=== PATIENT | female | born 1960 | race Caucasian/White ===

== ENCOUNTER 2016-06-09 20:09 | Emergency (ER) | payer OTHER ==
--- NOTE | 2016-06-09 23:05 | DIAGNOSTIC IMAGING REPORT ---
PROCEDURE: XR CHEST 1 VIEW INDICATION: SHORTNESS OF BREATH TECHNIQUE: Portable AP view (2145 hours). COMPARISON: None. FINDINGS: Lungs are clear. Heart and mediastinum are normal. Thorax is normal. IMPRESSION: 1. Negative chest.
--- NOTE | 2016-06-09 23:06 | ED NURSING NOTES ---
Clinical Report - Nurses [facility] [address] [place] [address] 06/09/2016 20:10 Patient: ISMAEL BARGER TRIAGE Triage time 20:34. Acuity: LEVEL 3. Chief Complaint: (Confusion and high blood pressure). --20:43 Marcel Booth R.N. 20:34 06/09/16. BP: 206/104. HR: 71. RR: 20. O2 saturation: 99%. Temp: 98.1 F. Pain level now 0/10. --20:43 Marcel Booth R.N. Weight: 77.1 kg stated. Height/Length: 62 inches Per Patient. BMI: 31.1. --20:41 Marcel Booth R.N. Medications Imitrex Oral. --20:36 Marcel Booth R.N. Lisinopril Oral (Tablet 20 mg). --20:37 Marcel Booth R.N. Propranolol HCl ER Oral 80mg, 2 cap daily. --20:37 Marcel Booth R.N. Medication/allergy information source: the patient. --20:43 Marcel Booth R.N. Allergies No Known Drug Allergy. --20:40 Marcel Booth R.N. History Arrived by private vehicle. Historian: patient. Primary physician ([facility]). This started today. ( Pt came in due to having confusion and HBP. Pt started taking lisinopril 20mg. She had a stress test a month ago and the MD said her bra was on too tight. Pt had an ekg at the about a week ago and was NSR. Pt is taking antibiotics for recent dental work.). Treatment ADMINISTRATIVE ASSISTANT FRONT DESK: None. SOCIAL HX: Never smoker. No alcohol use or drug use. --20:43 Marcel Booth R.N. PROBLEMS: Mitral Valve Prolapse. Migraine Headache. Hypertension. --20:42 Marcel Booth R.N. Interventions ID band on patient. To treatment room. --20:43 Marcel Booth R.N. PHYSICAL ASSESSMENT ( Pt denies any chest pain or headache. Pt is very anxious due to the BP.). GENERAL / NEURO / PSYCH: Alert. Oriented X 4. Appears in no acute distress. Appears anxious. HEENT: Pupils equal, round and reactive to light. No facial asymmetry noted. Mucous membranes are pink. RESPIRATORY: Respirations not labored. Chest nontender. Breath sounds within normal limits. CVS: Normal sinus rhythm noted. Capillary refill less than 2 seconds. Pulses within normal limits. GI / : Abdomen soft and nontender and normal bowel sounds. SKIN: Skin intact. Skin is warm and dry. Normal skin turgor. --20:44 Marcel Booth R.N. NURSING PROGRESS NOTES Pulse oximeter and NIBP monitor placed on patient. Patient gowned. Two patient identifiers checked. Call light placed in reach. Side rails up x 1. Bed placed in lowest position. Brakes of bed on. --20:44 Marcel Booth R.N. ( Pt stated she did have some confusion at home. She could not remember names of her family, but did not last very long. Pt has no confusion at this time. Family is at bedside.). --21:07 Marcel Booth R.N. EKG time: (2142). EKG was ordered, performed by a tech and shown to the ED physician. --21:45 Cedrick Traylor, CAMRYN Tech1 21:55 06/09/16. BP: 163/97. HR: 80. RR: 16. O2 saturation: 100%. Pain level now 0/10. --21:55 Marcel Booth R.N. 22:04 06/09/2016 Site #1 started via IV in the right hand with an 20g angiocath, with aseptic technique and good blood return; one attempt. Blood drawn: rainbow set. Labeled in the presence of the patient and sent to the lab. Saline lock flushed with 10 mL saline. --22:04 Marcel Booth R.N. 22:07 06/09/2016 Amlodipine PO 5 mg given. Allergies verified and confirmed 5 rights. --22:17 Marcel Booth R.N. 22:32 06/09/16. BP: 161/93. HR: 64. RR: 15. O2 saturation: 100%. Pain level now 0/10. --22:33 Marcel Booth R.N. DISPOSITION / DISCHARGE 23:28 06/09/2016 Site #1 removed upon discharge. Catheter intact. Bandaid applied. --23:28 Marcel Booth R.N. Departure time: 23:28. Condition at departure: improved. No learning barriers present. Discharge instructions provided and reviewed with the patient. Reviewed medication(s) side effects, precautions, dosing and course information. Prescription(s) given to the patient (amiodipine). Patient verbalized understanding. Written instructions provided in Georgian. The patient was discharged by the physician. She was discharged home and accompanied by family. She left the Emergency Department ambulatory and via private vehicle. Family member driving. --23:30 Marcel Booth R.N. 23:24 06/09/16. BP: 145/89. HR: 73. RR: 15. O2 saturation: 97%. Pain level now 0/10. --23:30 Marcel Booth R.N. Locked/Released at 06/09/2016 23:30 by Marcel Booth R.N.
--- NOTE | 2016-06-09 23:06 | ED ORDER SUMMARY ---
..... Patient: ISMAEL BARGER OrderSheet Located [facility] VisitID: [id number] [place] [address] 56y, F Registration Date/Time: 06/09/2016 ORDER SHEET Weight: 77.1 kg (stated) Allergies: No Known Drug Allergy GENERAL ORDERS: Chest 1V Urgent (21:24 06/09/2016 Tamika Chavez) (Ack 21:30 IJurca ER Tech1) (21:58 Jaicnda) Cardiac Panel Stat (21:06/09/2016 Tamika Chavez) (Ack 21:30 IJurca ER Tech1) (22:16 Kiara R.NIsabel) UA-Culture if indicated Urgent (21:06/09/2016 Tamika Chavez) (Ack 21:30 IJurca ER Tech1) (Cancelled: Physician Order23:06 Tamika Chavez) EKG - ER Stat (21:06/09/2016 Tamika Chavez) (Ack 21:30 IJurca ER Tech1) (21:45 IJurca ER Tech1) MEDICATION ORDERS: Amlodipine PO 5 mg (NOW) (21:24 06/09/2016 Tamika Chavez) (22:17 Torrie R.N.) IV FLUIDS: IV Saline Lock (21:06/09/2016 Tamika Chavez) (22:13 Torrie R.N.) ORDER SHEET NOTES: [Electronically signed by Nitin Moore Dr. (23:08 06/09/2016)] [Electronically signed by Marcel Booth R.N. (23:30 06/09/2016)] [Electronically locked/signed by Marcel Booth R.N. (23:30 06/09/2016)]
--- NOTE | 2016-06-09 23:06 | ED CLINICAL REPORT ---
Clinical Report - Physicians/Mid Levels [facility] [address] [place] [address] 06/09/2016 20:10 Patient: ISMAEL BARGER Time Seen: 21:03; initial patient contact. Arrived- By private vehicle. Historian- patient. HISTORY OF PRESENT ILLNESS Chief Complaint: BLOOD PRESSURE ELEVATED. Checked by patient at home systolic 220. This started today and is still present but is better now. It was gradual in onset. At its maximum, severity described as severe. When seen in the E.D., severity described as moderate. Modifying factors. Not worsened by anything. Not relieved by anything. The patient has had a headache and visual disturbance. (Started on Lisinopril 20 ~ 1 month ago.BP has not been controlled.). Similar symptoms previously: None. Recent medical care: Not recently seen/assessed. REVIEW OF SYSTEMS No difficulty breathing, chest pain, nausea, vomiting or blackouts. She has had a headache. No difficulty with ambulation. All systems otherwise negative, except as recorded above. PAST HISTORY Mitral Valve Prolapse. Migraine Headache. Hypertension. . Medications: Propranolol HCl ER Oral 80mg, 2 cap daily. Lisinopril Oral (Tablet 20 mg). Imitrex Oral. Allergies: No Known Drug Allergy. SOCIAL HISTORY Never smoker. No alcohol use or drug use. ADDITIONAL NOTES The nursing notes have been reviewed with agreement regarding the chief complaint, PMH and patient medications and allergies. PHYSICAL EXAM Vital Signs: 06/09/2016 20:34 BP: 206/104. HR: 71. RR: 20. O2 saturation: 99%. Temp: 98.1 F. Have been reviewed. Hypertensive. Heart rate normal. Temperature normal. Oxygen saturation normal. Appearance: Alert. No acute distress. Eyes: Pupils equal, round and reactive to light. Eyes normal inspection. ENT: Pharynx normal. Neck: Normal inspection. CVS: Normal heart rate and rhythm. Heart sounds normal. Respiratory: No respiratory distress. Breath sounds normal. Skin: Normal skin color. No rash. Extremities: No calf tenderness. No lower extremity edema. Neuro: Oriented X 3. No motor deficit. No sensory deficit. Reflex exam: right triceps 2+, left triceps 2+, right brachioradialis 2+, left brachioradialis 2+, right patellar 2+ and left patellar 2+. LABS, X-RAYS, AND EKG EKG: EKG time: (2142). No acute process. Normal sinus rhythm. Rate: 70. Normal P waves. Normal CAILIN. Normal QRS complex. Normal axis. Normal ST and T waves, QT and QTc. Prior EKG unavailable. The study has been interpreted contemporaneously by me. The study has been independently viewed by me. The EKG appears to be a good tracing. Interpretation time: 2142. Chest X-ray: No acute disease. Normal lung markings present. Normal heart size. No infiltrate. Views: AP. Technique: good. The X-rays were independently viewed by me and interpreted contemporaneously by me. Prior films were not available for comparison. Interpretation time: 22:43. Laboratory Tests: CBC w Diff: (GERRY: 06/09/2016 22:15) ( [facility] Final results Test Result Flag Units (Reference) WHITE BLOOD COUNT 11.6 H K/uL (4.5-11.5) RED BLOOD COUNT 4.80 M/uL (4.00-5.20) HEMOGLOBIN 14.2 gm/dL (12.0-16.0) HEMATOCRIT 42.9 % (36.0-46.0) MEAN CELL VOLUME 89 fL (80-100) MEAN CORPUSCULAR HGB 30 pg (26-34) MEAN CORPUSCULAR HGB CONC 33 g/dL (31-37) RED CELL DISTRIBUTION WIDTH 13.5 % (11.6-14.8) PLATELET COUNT 243 K/uL (150-400) NEUTROPHIL % 83.6 H % (50-75) LYMPH % 9.8 L % (25-40) MONO % 5.4 % (3-14) EOSINOPHIL % 1.0 % (0-4) BASOPHIL % 0.2 % (0-2) CHEM 13 PANEL: (GERRY: 06/09/2016 22:15) ( [facility] 06/09/2016 22:44) Final results Test Result Flag Units (Reference) GLUCOSE 105 mg/dL (70-110) BUN 22 H mg/dL (7-18) CREATININE 1.1 mg/dL (0.6-1.3) Estimated GFR 54.22 mL/min Estimated GFR- >60 mL/min Note: Persistent reduction over 3 months in eGFR<60 mL/min/1.73 m2 defines CKD. Patients with eGFR values>=60 mL/min/1.73 m2 may also have CKD if evidence ofpersistent proteinuria. Additional information may be foundat www.kidney.org. SODIUM 140 mmol/L (136-145) POTASSIUM 4.3 mmol/L (3.5-5.1) CHLORIDE 105 mmol/L (98-107) CARBON DIOXIDE 25 mmol/L (21-32) CALCIUM 9.2 mg/dL (8.5-10.1) TOTAL PROTEIN 7.5 g/dL (6.4-8.2) ALBUMIN 4.0 g/dL (3.3-5.0) BILIRUBIN, TOTAL 0.7 mg/dL (0.0-1.0) ALKALINE PHOSPHATASE 64 U/L (46-116) AST (SGOT) 21 U/L (15-37) ALT (SGPT) 31 U/L (12-78) MAGNESIUM 1.9 mg/dL (1.8-2.4) CPK 163 U/L (24-260) TROPONIN I <0.05 ng/mL (0.00-1.5) TROPONIN REFERENCE RANGE:<0.1 NEGATIVE0.1-1.5 INDETERMINANT>1.5 POSITIVE . PROGRESS AND PROCEDURES Course of Care: 23:06 06/09/16. Pt currently asymptomatic and BP markedly improved after dose of Amlodipine 5 mg. Disposition: Discharged home in good and improved condition. Condition: good. CLINICAL IMPRESSION Uncontrolled essential hypertension. INSTRUCTIONS Avoid NSAIDS. Examples of NSAIDS include aspirin, ibuprofen (Advil) and naproxen (Aleve). Avoid salty foods. Your Current Medications: CONTINUE TAKING THE FOLLOWING MEDICATIONS: Imitrex Oral. Lisinopril Oral : Tablet 20 mg. Propranolol HCl ER Oral : 80mg 2 cap daily. Prescription Medications: Amlodipine 5 mg: take 1 orally every 24 hours. Dispense thirty (30). No refills. Follow-up: Follow up with your doctor in about two days. Call for an appointment. Blood pressure screening was not performed during this visit because the patient has an active diagnosis of hypertension. The patient should follow up with a primary care provider for blood pressure management. (Electronically signed by Nitin Moore Dr. 06/09/2016 23:08)
--- NOTE | 2016-06-09 23:06 | ED NURSING NOTES ---
Clinical Report - Nurses [facility] [address] [place] [address] 06/09/2016 20:10 Patient: ISMAEL BARGER TRIAGE Triage time 20:34. Acuity: LEVEL 3. Chief Complaint: (Confusion and high blood pressure). --20:43 Marcel Booth R.N. 20:34 06/09/16. BP: 206/104. HR: 71. RR: 20. O2 saturation: 99%. Temp: 98.1 F. Pain level now 0/10. --20:43 Marcel Booth R.N. Weight: 77.1 kg stated. Height/Length: 62 inches Per Patient. BMI: 31.1. --20:41 Marcel Booth R.N. Medications Imitrex Oral. --20:36 Marcel Booth R.N. Lisinopril Oral (Tablet 20 mg). --20:37 Marcel Booth R.N. Propranolol HCl ER Oral 80mg, 2 cap daily. --20:37 Marcel Booth R.N. Medication/allergy information source: the patient. --20:43 Marcel Booth R.N. Allergies No Known Drug Allergy. --20:40 Marcel Booth R.N. History Arrived by private vehicle. Historian: patient. Primary physician ([facility]). This started today. ( Pt came in due to having confusion and HBP. Pt started taking lisinopril 20mg. She had a stress test a month ago and the MD said her bra was on too tight. Pt had an ekg at the about a week ago and was NSR. Pt is taking antibiotics for recent dental work.). Treatment TELEPATHIST: None. SOCIAL HX: Never smoker. No alcohol use or drug use. --20:43 Marcel Booth R.N. PROBLEMS: Mitral Valve Prolapse. Migraine Headache. Hypertension. --20:42 Marcel Booth R.N. Interventions ID band on patient. To treatment room. --20:43 Marcel Booth R.N. PHYSICAL ASSESSMENT ( Pt denies any chest pain or headache. Pt is very anxious due to the BP.). GENERAL / NEURO / PSYCH: Alert. Oriented X 4. Appears in no acute distress. Appears anxious. HEENT: Pupils equal, round and reactive to light. No facial asymmetry noted. Mucous membranes are pink. RESPIRATORY: Respirations not labored. Chest nontender. Breath sounds within normal limits. CVS: Normal sinus rhythm noted. Capillary refill less than 2 seconds. Pulses within normal limits. GI / : Abdomen soft and nontender and normal bowel sounds. SKIN: Skin intact. Skin is warm and dry. Normal skin turgor. --20:44 Marcel Booth R.N. NURSING PROGRESS NOTES Pulse oximeter and NIBP monitor placed on patient. Patient gowned. Two patient identifiers checked. Call light placed in reach. Side rails up x 1. Bed placed in lowest position. Brakes of bed on. --20:44 Marcel Booth R.N. ( Pt stated she did have some confusion at home. She could not remember names of her family, but did not last very long. Pt has no confusion at this time. Family is at bedside.). --21:07 Marcel Booth R.N. EKG time: (2142). EKG was ordered, performed by a tech and shown to the ED physician. --21:45 Cedrick Traylor, CARMYN Tech1 21:55 06/09/16. BP: 163/97. HR: 80. RR: 16. O2 saturation: 100%. Pain level now 0/10. --21:55 Marcel Booth R.N. 22:04 06/09/2016 Site #1 started via IV in the right hand with an 20g angiocath, with aseptic technique and good blood return; one attempt. Blood drawn: rainbow set. Labeled in the presence of the patient and sent to the lab. Saline lock flushed with 10 mL saline. --22:04 Marcel Booth R.N. 22:07 06/09/2016 Amlodipine PO 5 mg given. Allergies verified and confirmed 5 rights. --22:17 Marcel Booth R.N. 22:32 06/09/16. BP: 161/93. HR: 64. RR: 15. O2 saturation: 100%. Pain level now 0/10. --22:33 Marcel Booth R.N. DISPOSITION / DISCHARGE 23:28 06/09/2016 Site #1 removed upon discharge. Catheter intact. Bandaid applied. --23:28 Marcel Booth R.N. Departure time: 23:28. Condition at departure: improved. No learning barriers present. Discharge instructions provided and reviewed with the patient. Reviewed medication(s) side effects, precautions, dosing and course information. Prescription(s) given to the patient (amiodipine). Patient verbalized understanding. Written instructions provided in Syriac. The patient was discharged by the physician. She was discharged home and accompanied by family. She left the Emergency Department ambulatory and via private vehicle. Family member driving. --23:30 Marcel Booth R.N. 23:24 06/09/16. BP: 145/89. HR: 73. RR: 15. O2 saturation: 97%. Pain level now 0/10. --23:30 Marcel Booth R.N. Locked/Released at 06/09/2016 23:30 by Marcel Booth R.N.
--- NOTE | 2016-06-09 23:06 | ED ORDER SUMMARY ---
..... Patient: ISMAEL BARGER OrderSheet [facility] VisitID: [id number] [place] [address] 56y, F Registration Date/Time: 06/09/2016 ORDER SHEET Weight: 77.1 kg (stated) Allergies: No Known Drug Allergy GENERAL ORDERS: Chest 1V Urgent (21:24 06/09/2016 Tamika Chavez) (Ack 21:30 IJurca ER Tech1) (21:58 Jacinda) Cardiac Panel Stat (21:06/09/2016 Tamika Chavez) (Ack 21:30 IJurca ER Tech1) (22:16 Kiara R.NIsabel) UA-Culture if indicated Urgent (21:06/09/2016 Tamika Chavez) (Ack 21:30 IJurca ER Tech1) (Cancelled: Physician Order23:06 Tamika Chavez) EKG - ER Stat (21:06/09/2016 Tamika Chavez) (Ack 21:30 IJurca ER Tech1) (21:45 IJurca ER Tech1) MEDICATION ORDERS: Amlodipine PO 5 mg (NOW) (21:24 06/09/2016 Tamika Chavez) (22:17 Torrie R.N.) IV FLUIDS: IV Saline Lock (21:06/09/2016 Tamika Chavez) (22:13 Torrie R.N.) ORDER SHEET NOTES: [Electronically signed by Nitin Moore Dr. (23:08 06/09/2016)] [Electronically signed by Marcel Booth R.N. (23:30 06/09/2016)] [Electronically locked/signed by Marcel Booth R.N. (23:30 06/09/2016)]
--- NOTE | 2016-06-09 23:30 | ED MED RECONCILIATION SUMMARY ---
Patient: ISMAEL BARGER Medication Reconciliation Report [facility] VisitID: [id number] [address] [place] [address] 56y, F Registration Date/Time: 06/09/2016 Weight: 77.1 kg Height/Length: 62 in. BMI: 31.1 ALLERGIES: No Known Drug Allergy The patient's Home Medications are listed below: CONTINUE TAKING THE FOLLOWING MEDICATIONS: Imitrex Oral Lisinopril Oral (20 mg) Propranolol HCl ER Oral 80mg, 2 cap daily The source(s) of the original Home Medication information: patient The following Medications were given to the patient in the Emergency Department: Amlodipine [PO] PO 5 mg, administered: 06/09/2016 10:07:00 PM The following Medications were prescribed to the patient: Amlodipine 5 mg: take 1 orally every 24 hours. Dispense thirty (30). No refills. -- Nitin Moore Dr.
--- NOTE | 2016-06-09 23:30 | ED MED RECONCILIATION SUMMARY ---
Patient: ISMAEL BARGER Medication Reconciliation Report [facility] VisitID: [id number] [address] [place] [address] 56y, F Registration Date/Time: 06/09/2016 Weight: 77.1 kg Height/Length: 62 in. BMI: 31.1 ALLERGIES: No Known Drug Allergy The patient's Home Medications are listed below: CONTINUE TAKING THE FOLLOWING MEDICATIONS: Imitrex Oral Lisinopril Oral (20 mg) Propranolol HCl ER Oral 80mg, 2 cap daily The source(s) of the original Home Medication information: patient The following Medications were given to the patient in the Emergency Department: Amlodipine [PO] PO 5 mg, administered: 06/09/2016 10:07:00 PM The following Medications were prescribed to the patient: Amlodipine 5 mg: take 1 orally every 24 hours. Dispense thirty (30). No refills. -- Nitin Moore Dr.
--- NOTE | 2016-06-09 23:30 | ED DISCHARGE INSTRUCTIONS ---
Patient: ISMALE BARGER General Instructions [facility] VisitID: [id number] [place] [address] 56y, F Registration Date/Time: 06/09/2016 Uncontrolled essential hypertension. INSTRUCTIONS Avoid NSAIDS. Examples of NSAIDS include aspirin, ibuprofen (Advil) and naproxen (Aleve). Avoid salty foods. Your Current Medications: CONTINUE TAKING THE FOLLOWING MEDICATIONS: Imitrex Oral. Lisinopril Oral : Tablet 20 mg. Propranolol HCl ER Oral : 80mg 2 cap daily. Prescription Medications: Amlodipine 5 mg: take 1 orally every 24 hours. Dispense thirty (30). No refills. Follow-up: Follow up with your doctor in about two days. Call for an appointment. Blood pressure screening was not performed during this visit because the patient has an active diagnosis of hypertension. The patient should follow up with a primary care provider for blood pressure management. ADDITIONAL INFORMATION Hypertension, Out Of Control (Established) Your blood pressure was unusually high today. This can occur as a result of missing doses of your blood pressure medicine. Some asthma inhalers, decongestants, diet pills, and street drugs such as cocaine and amphetamine can worsen hypertension. An increase in body weight, increase in salt intake, smoking, and caffeine are other causes. Emotional upset or acute pain can cause a sudden rapid rise in blood pressure which may return to normal after a period of rest. A normal blood pressure is less than 140/90. The first (top) number is the systolic pressure. The second (bottom) number is the diastolic pressure. Hypertension exists when either the top number is 140 or higher, OR the bottom number is 90 or higher on repeated measurements. Home Care: All patients with high blood pressure should do the following to lower their pressure. If you are on blood pressure medicines, then these methods may reduce or eliminate your need for medicines in the future. Begin a weight-loss program if you are overweight. Reduce your salt intake. Avoid high-salt foods (olives, pickles, smoked meats, salted potato chips, etc.). Do not add salt to your food at the table. Use only small amounts of salt when cooking. Begin an exercise program. Discuss with your doctor what type of exercise program would be best for you. It doesnt have to be difficult. Even brisk walking for 20 minutes3 times a week is a good form of exercise. Avoid medicines which contain heart stimulants. This includes many cold and sinus decongestant pills and sprays as well as diet pills. Check the warnings about hypertension on the label. Stimulants such as amphetamine or cocaine could be lethal for someone with hypertension. Never take these. Limit your caffeine intake or switch to decaf. Stop smoking. If you are a long-time smoker, this can be hard. Enroll in a stop-smoking program to improve your chance of success. Talk to your physician about ways to improve your chance of success. Learning how to handle stress better is an important part of any program to lower blood pressure. Learn about relaxation methods such as meditation, yoga, or biofeedback. If medicines were prescribed, take them exactly as directed. Missing doses may cause your blood pressure to get out of control. Consider buying an automatic blood pressure machine (available at many pharmacies). Use this to monitor your blood pressure and report to your doctor. Follow Up: Regular visits to your own doctor for blood pressure checks and medicine adjustment is an important part of your care. Make a follow-up appointment as directed by our staff. Get Prompt Medical Attention if any of the following occur: Chest, arm, shoulder, neck, or upper back pain Shortness of breath Severe headache Throbbing or rushing sound in the ears Nosebleed Extreme drowsiness, confusion, or fainting Dizziness or vertigo (dizziness with spinning sensation) Weakness of an arm or leg or one side of the face Difficulty with speech or vision Low-Salt Diet (2 Grams/Day) This diet eliminates foods that are high in salt and restricts the amount of salt that you cook with. It is most often used for patients with high blood pressure, edema (fluid retention), kidney, liver, and heart disease. Table salt contains the mineral sodium. The body needs sodium to work normally. But too much sodium can make your health problems worse. Your healthcare provider is recommending a low-salt (also called low-sodium) diet for you. Your total daily allowance of salt (sodium) is 2 grams. This equals 2,000 milligrams (mg). It is less than 1 teaspoon of table salt. This means you can have only about 700 mg of sodium at each meal. When you cook, limit the salt you use. And if you can avoid using salt, even better. Do not add salt at the table. So, throw away the saltshaker! When shopping, read the package labels. Salt is often called sodium on the label. Choose foods that are Salt-Free, Low Salt, or Very Low Salt. Note that foods with Reduced Salt may notlower your salt intake enough. Beverages OK: Tea, coffee, carbonated beverages, juices AVOID: Flavored international coffees, electrolyte replacement drinks, sports beverages Bread & Cereals OK: All regular bread, rolls, cereals, cakes; low-salt crackers, matzoh crackers AVOID: Salted crackers, pretzels, popcorn; polish toast, pancakes, muffins Fruits & Desserts OK: Ice cream, frozen yogurt, juice bars, gelatin (Jell-O), cookies and pies, sugar, honey, jelly, hard candy AVOID: Most pies, cakes and cookies prepared or processed with salt, instant pudding Meats OK: All fresh meat, fish, poultry, low-salt tuna AVOID: Smoked, pickled, brine-cured, or salted meats or fish. Thisincludes calderon, chipped beef, corned beef, hot dogs, luncheon meats, ham, kosher meats, salt pork, sausage, canned tuna, salted codfish, smokedsalmon, hoffman, sardines, or anchovies. Dairy OK: Milk, chocolate milk, hot chocolate mix; eggs, Low Salt cheeses, yogurt, egg substitute AVOID: Processed cheese, cheese spreads, Roquefort, Camembert, and cottage cheese, buttermilk, instant breakfast drink Beans, Potatoes & Pasta OK: Dry beans, split peas, lentils, potatoes, rice, macaroni, noodles, spaghetti without added salt AVOID: Potato chips, tortilla chips, and similar products Soups OK: Low-salt soups and broths made with allowed foods AVOID: Bouillon cubes, soups with smoked or salted meats, regular soup and broth Vegetables OK: Most are okay; low-salt tomato and vegetable juices AVOID: Sauerkraut and other brine-soaked vegetables, pickles and other pickled vegetables, tomato juice, olives Seasoning & Spices OK: Most seasonings are okay. Good substitutes for salt include: fresh herb blends, Tabasco, lemon, garlic, xiong, vinegar, dry mustard, parsley, cilantro, horseradish, tomato paste, regular margarine, mayonnaise, butter, cream cheese, vegetable oil, cream, low-salt salad dressing and gravy AVOID: Regular ketchup, relishes, pickles, soy sauce, teriyaki sauce, Worcestershire sauce, BBQ sauce, tartar sauce, meat tenderizer, chili sauce, regular gravy, regular salad dressing Amlodipine Besylate Oral tablet What is this medicine? AMLODIPINE (am BRANDI chicas) is a calcium-channel cynthia. It affects the amount of calcium found in your heart and muscle cells. This relaxes your blood vessels, which can reduce the amount of work the heart has to do. This medicine is used to lower high blood pressure. It is also used to prevent chest pain. How should I use this medicine? Take this medicine by mouth with a glass of water. Follow the directions on the prescription label. Take your medicine at regular intervals. Do not take more medicine than directed. Talk to your senior quality control inspector regarding the use of this medicine in children. Special care may be needed. This medicine has been used in children as young as 6. Persons over 65 years old may have a stronger reaction to this medicine and need smaller doses. What side effects may I notice from receiving this medicine? Side effects that you should report to your doctor or health floor care specialist as soon as possible: allergic reactions like skin rash, itching or hives, swelling of the face, lips, or tongue breathing problems changes in vision or hearing chest pain fast, irregular heartbeat swelling of legs or ankles Side effects that usually do not require medical attention (report to your doctor or health floor care specialist if they continue or are bothersome): dry mouth facial flushing nausea, vomiting stomach gas, pain tired, weak trouble sleeping What may interact with this medicine? herbal or dietary supplements local or general anesthetics medicines for high blood pressure medicines for prostate problems rifampin What if I miss a dose? If you miss a dose, take it as soon as you can. If it is almost time for your next dose, take only that dose. Do not take double or extra doses. Where should I keep my medicine? Keep out of the reach of children. Store at room temperature between 59 and 86 degrees F (15 and 30 degrees C). Protect from light. Keep container tightly closed. Throw away any unused medicine after the expiration date. What should I tell my health care provider before I take this medicine? They need to know if you have any of these conditions: heart problems like heart failure or aortic stenosis liver disease an unusual or allergic reaction to amlodipine, other medicines, foods, dyes, or preservatives or trying to get breast-feeding What should I watch for while using this medicine? Visit your doctor or health floor care specialist for regular check ups. Check your blood pressure and pulse rate regularly. Ask your health floor care specialist what your blood pressure and pulse rate should be, and when you should contact him or her. This medicine may make you feel confused, dizzy or lightheaded. Do not drive, use machinery, or do anything that needs mental alertness until you know how this medicine affects you. To reduce the risk of dizzy or fainting spells, do not sit or stand up quickly, especially if you are an older patient. Avoid alcoholic drinks; they can make you more dizzy. Do not suddenly stop taking amlodipine. Ask your doctor or health floor care specialist how you can gradually reduce the dose. You have been given the following additional information: Hypertension, Established, Out Of Control Diet, Low Salt (2Gm) Amlodipine Besylate Oral tablet (Electronically signed by Nitin Moore Dr. 06/09/2016 23:08)
--- NOTE | 2016-06-09 23:30 | ED MAR SUMMARY ---
..... Medication Administration Record [facility] [address] [place] [address] Patient: ISMAEL BARGER Visit ID: [id number] 56y, F Weight: 77.1 kg Height/Length: 62 in BMI: 31.1 ALLERGIES: No Known Drug Allergy Given 22:07 06/09/2016 Marcel Booth R.N. Medication Administered: AMLODIPINE [PO], Dose: 5 mg PO. Medication Ordered: Amlodipine PO 5 mg (NOW).
--- NOTE | 2016-06-09 23:30 | ED MAR SUMMARY ---
..... Medication Administration Record [facility] [address] [place] [address] Patient: ISMAEL BARGER Visit ID: [id number] 56y, F Weight: 77.1 kg Height/Length: 62 in BMI: 31.1 ALLERGIES: No Known Drug Allergy Given 22:07 06/09/2016 Marcel Booth R.N. Medication Administered: AMLODIPINE [PO], Dose: 5 mg PO. Medication Ordered: Amlodipine PO 5 mg (NOW).
== END 2016-06-09 23:25 | disposition home or self-care (01) ==
LOC: ED SRH 20:09
DX: I10 Essential (primary) hypertension (principal); Z79.899 Other long term (current) drug therapy
CPT/HCPCS: 90074; 90100; 90616; 92610; 92720; 95059